=== PATIENT | male | born 1970 | race Caucasian/White ===

== ENCOUNTER 2017-11-02 07:50 | Inpatient (IN) | payer BC, OTHER ==
[~2017-11-02] VITALS: Ht 180.3 cm; Wt 80.7 kg
--- NOTE | 2017-11-02 10:50 | NUR ---
Pre-admission Note: Client is seen in intake at this time. Alert and verbally responsive. Oriented x 4. Appears anxious, restless, frequently shifting body movements, noted with BUE gross tremors and appears flushed. Hyperverbal speech noted with racing thoughts. He denies any AV hallucinations and S/I or H/I. He denies having and seizure history and reports allergies to PCN, and Cephalexin. VS: Temp 98.3, Pulse 87, RR 19, PL 0/10, O2 sat at RA 100%. He states "I'm here to get my life back together, I just can't keep on doing this anymore or I'm going to end up ." He reports using methamphetamine, Xanax, ETOH, Marijuana and hx of using hallucinogens such as ketamine and MDMA. Education provided regarding the admission process. He verbalized good understanding. He is able to give consent on the admission process. Will continue with the admission when patient arrives in the unit.
[2017-11-02 11:00] VITALS: BP 121/71
[2017-11-02] MEDS ORDERED: CLONIDINE HCL 0.1 MG TABLET PO PRN (11:00)
[2017-11-02] MEDS ORDERED: LORAZEPAM 1 MG TABLET PO PRN (11:00)
[2017-11-02] MEDS ORDERED: DICYCLOMINE HCL 20 MG TABLET PO PRN (11:00)
[2017-11-02] MEDS ORDERED: NICOTINE 14 MG/24HR PATCH TD PRN (11:00)
[2017-11-02] MEDS ORDERED: ONDANSETRON 4 MG/2 ML VIAL IM PRN (11:00)
[2017-11-02] MEDS ORDERED: ACETAMINOPHEN 325 MG TABLET PO PRN (11:00)
[2017-11-02] MEDS ORDERED: THIAMINE HCL 200 MG/2 ML VIAL IM ONE (11:00)
[2017-11-02] MEDS ORDERED: MAG HYDROX/AL HYDROX/SIMETH 30 ML LIQUID UDC PO PRN (11:00)
[2017-11-02] MEDS ORDERED: NICOTINE POLACRILEX 4 MG GUM-PK OF TEN BC PRN (11:00)
[2017-11-02] MEDS ORDERED: MAGNESIUM HYDROXIDE 30 ML LIQUID UDC PO PRN (11:00)
[2017-11-02] MEDS ORDERED: LORAZEPAM 2 MG/1 ML VIAL IM PRN (11:00)
[2017-11-02] MEDS ORDERED: LOPERAMIDE HCL 2 MG CAPSULE PO PRN ×2 (11:00)
[2017-11-02] MEDS ORDERED: IBUPROFEN 400 MG TABLET PO PRN (11:00)
[2017-11-02] MEDS ORDERED: ONDANSETRON ODT 4 MG TAB.RAPDIS SL PRN (11:00)
--- NOTE | 2017-11-02 11:15 | NUR ---
Admission Note: Admitted at 47 year old male under the care of Dr. Jc Madrigal for medically supervised withdrawal from multiple substances. He is alert and oriented x 4 with racing/disorganized thoughts, paranoia, hyperverbal speech. No changes in LOC noted since seeing the patient in intake. He appears anxious and worried, disheveled and restless. Noted with BUE gross tremors. Respirations even and unlabored. No SOB noted. Skin warm and moist to touch. Noted to appear with facial flushing. Body search done with male RESIDENTIAL PLUMBER. No contraband was found. Skin check done. No skin breakdown noted. Abdomen soft and non-distended. No complains of abdominal discomfort noted. He reports his LBM was yesterday. Bladder non-distended, but complains of difficulty voiding and strong urinary odor. He is ambulatory ad nithin with steady gait. Reports past medical hx of Schizoaffective disorder, Mood Disorder, Panic Disorder, Suicide Attempt by hanging 8 weeks prior to admission and withdrawal induced delirium, and Insomnia. He repots allergies to PCN and Cephalexin. No seizure history noted. Patient appears moderately intoxicated. CIWA 14, due to moderate to severe anxiety, agitation, mild tremors to BUE, and facial flushing. He refused to receive PNA and FLU vaccine at this time. His longest period of sobriety was 2.5 years in 2013. He has been to multiple treatments in the past. He currently denies having a PCP at this time, however reports having a psychiatrist which he has not seen in 3 years. He wishes to be FULL CODE. Substance Use: 1. Methamphetamine - Uses 0.5 grams to 1 gram daily via smoke inhalation, rectally or intranasally x 9 months. Last use was 5 hours prior to admission, 0.25 grams. 2. Xanax - Uses 1-2 grams orally on a non-daily, intermittent basis. Last use was on 11/01/2017, 1 mg. 3. ETOH (gin, red wine or beer) - Drinks "3-4" drinks 4x/week. Last use was on 11/01/2017. 4. Marijuana - Smokes an unspecified amount on a intermittent, non-daily basis. Last use was yesterday. Treatment History: 1. 30 day Outpatient treatment in 2002 in [place] 2. 5-day Medical detox in 2009 in [place] made aware of patient's arrival in the unit and current condition. MD entered in admission orders. Patient will be on PRN Ativan for withdrawal management. Orders noted and carried out. Addendum: 11/02/17 at 1309 by JOYCE SOLORIO LVN Upon admission and patient's arrival in the unit, patient denies having any active suicidal attempts, plans of H/I at this time.
[2017-11-02 11:36] LABS: BASOPHILS # (AUTO) 0.1 K/uL (0.0-8.0); BASOPHILS % (AUTO) 0.8 % (0.0-2.0); EOSINOPHILS # (AUTO) 0.2 K/uL (0.0-0.7); EOSINOPHILS % (AUTO) 3.1 % (0.0-7.0); HEMATOCRIT 51.7 % (36.7-47.1); HEMOGLOBIN 18.1 g/dL (12.5-16.3); LYMPHOCYTES # (AUTO) 2.2 K/uL (20.0-40.0); LYMPHOCYTES % (AUTO) 29.5 % (20.5-51.5); MEAN CORPUSCULAR HEMOGLOBIN 33.6 uug (23.8-33.4); MEAN CORPUSCULAR HGB CONC 35 g/dL (32.5-36.3); MONOCYTES # (AUTO) 0.5 K/uL (2.0-10.0); MONOCYTES % (AUTO) 7.2 % (0.0-11.0); NEUTROPHILS # (AUTO) 4.4 K/uL (1.8-8.9); NEUTROPHILS % (AUTO) 59.4 % (38.5-71.5); PLATELET COUNT (AUTO) 250 K/uL (152-348); RED BLOOD CELL COUNT(AUTO) 5.39 MIL/uL (4.06-5.63); WHITE BLOOD COUNT (AUTO) 7.3 K/uL (3.6-10.2)
[2017-11-02 11:37] LABS: ETHANOL < 3 MG/DL (0-0)
[2017-11-02 11:37] LABS: *AMPHETAMINE, URINE POSITIVE (NEGATIVE); *BARBITURATE, URINE NEGATIVE (NEGATIVE); *CANNABINOID, URINE POSITIVE (NEGATIVE); *COCCAINE, URINE NEGATIVE (NEGATIVE); *OPIATE, URINE NEGATIVE (NEGATIVE); *PHENCYCLIDINE SCREEN,URINE NEGATIVE (NEGATIVE)
[2017-11-02 11:41] LABS: ALANINE AMINOTRANSFERASE 25 U/L (16-63); ALKALINE PHOSPHATASE 102 U/L (50-136); ASPARTATE AMINOTRANSFERASE 17 U/L (15-37); BILIRUBIN,TOTAL 0.4 mg/dL (0.2-1.0); CARBON DIOXIDE 31 mmol/L (21-32); CHLORIDE 103 mmol/L (98-107); CREATININE 0.9 mg/dL (0.6-1.3); GLUCOSE 80 mg/dL (74-106); MAGNESIUM 2.1 mg/dL (1.8-2.4); POTASSIUM 3.9 mmol/L (3.5-5.1); TOTAL PROTEIN, SERUM 7.3 g/dL (6.4-8.2); UREA NITROGEN, BLOOD 8 mg/dL (7-18)
[2017-11-02] MEDS: THIAMINE HCL 100 MG TABLET PO SCH (11:50)
[2017-11-02] MEDS: LORAZEPAM 1 MG TABLET PO PRN (11:51)
--- NOTE | 2017-11-02 11:51 | NUR ---
Ativan 2 mg PO given: CIWA 14, due to moderate to severe anxiety, agitation. Mild gross tremors to BUE. Medicated patient with Ativan 2 mg PO as ordered. Will monitor for effectiveness.
[2017-11-02 12:00] VITALS: BP 127/77
[2017-11-02 12:13] LABS: THYROID STIMULATING HORMONE 1.058 mIU/mL (0.358-3.740)
--- NOTE | 2017-11-02 12:51 | NUR ---
Re-assessment: Ativan 2mg CIWA 4, patient appears to be more at ease, less tremors, sweating and less agitation noted. PRN Ativan 2 mg PO was effective.
[2017-11-02 12:56] LABS: *BILIRUBIN,URIN NEGATIVE (NEGATIVE); *BLOOD, URINE Trace-lysed (NEGATIVE); *CLARITY,URINE CLEAR (CLEAR); *COLOR,URINE YELLOW (YELLOW); *KETONES,URINE NEGATIVE (NEGATIVE); *PROTEIN,URINE NEGATIVE (NEGATIVE); *UROBILINOGEN,URINE 0.2 E.U./dl (NORMAL); LEUKOCYTE ESTERASE ,URINE NEGATIVE (NEGATIVE); NITRITE, URINE NEGATIVE (NEGATIVE); PH,URINE 5.5 (5.0-8.0); UGLUCOSE NEGATIVE (NEGATIVE)
[2017-11-02] MEDS ORDERED: OLAN10TA3 PO (13:24)
[2017-11-02 13:37] LABS: BACTERIA,URINE NONE SEEN /HPF (NONE SEEN); RBC,URINE 0-3 /HPF (0-3); SQUAMOUS EPITHELIAL CELL,UR FEW /HPF (NONE SEEN); WBC,URINE 0-3 /HPF (0-3)
--- NOTE | 2017-11-02 14:30 | NUR ---
Psych MD Visit: Patient seen and examined by Dr. Luke with N.O. Patient will be started on Abilify 2 mg PO as ordered. Patient education provided.
[2017-11-02] MEDS: ARIPIPRAZOLE 2 MG TABLET PO SCH (14:56)
[2017-11-02 16:00] VITALS: BP 102/67
[2017-11-02] MEDS: MIRALAX 17 GM POWD.PACK PO PRN (17:58)
--- NOTE | 2017-11-02 17:58 | NUR ---
Miralax 17 G po given: Patient complained of constipation. Oral fluids encouraged. Activity encouraged. Medicated patient with Miralax 17 GM po as ordered. Will monitor for effectiveness.
--- NOTE | 2017-11-02 18:58 | NUR ---
Re-assessment: Miralax No results noted from Miralax noted at this time. Oral fluids encouraged. Will continue to monitor.
--- NOTE | 2017-11-02 19:00 | NUR ---
Start of Shift Patient Received. Patient is in his room sleeping but easily aroused to verbal stimuli. Breathing even and non labored. Per endorsement, Patient is a 47 year old male admitted today for Methamphetamine and Benzo Withdrawal. Patient is currently receiving PRN medications for increased signs and symptoms of withdrawal. Patient is noted with increased anxiety, agitation, restlessness, gross tremors, and facial flushing. Patient was given PRN Ativan 2mg with medication noted to be effective. Patient also was given PRN Miralax with complaints of constipation. Patient was noted to be withdrawn to room due to increased signs and symptoms of withdrawal. Last noted CIWA 4. All needs attended to promptly. Will continue plan of care as ordered.
--- NOTE | 2017-11-02 19:03 | NUR ---
End of Shift Notes: Patient is on PRNs at this time to manage his withdrawal symptoms. VS monitored closely. No significant abnormalities noted. Withdrawal symptoms were closely monitored. Initial CIWA 14, patient presented with anxiety, agitation, restlessness, gross tremors, facial flushing. Medicated patient with Ativan 2 mg PO at 1151 for CIWA 14 with help after 1 hour. Miralax 17gm PO given at 1758 for complains of constipation. Results pending. Patient verbalizes that Ativan has been effective in reducing his withdrawal symptoms. Patient continues to be appear worried, sad and anxious. Redirected as needed. Requires encouragement to participated in group and activities for redirection. Mostly stayed in his room for the remainder of the shift. All needs met and attended. Will continue to monitor closely.
[2017-11-02 20:45] VITALS: BP 121/80
[2017-11-02] MEDS ORDERED: LORAZEPAM 1 MG TABLET PO SCH (21:00)
[2017-11-02] MEDS: diphenhydrAMINE 50 MG CAPSULE PO PRN (21:13)
--- NOTE | 2017-11-02 21:15 | NUR ---
PRN Medication Administration Patient is verbalizing inability of falling asleep. Patient states "I'm really restless and find myself waking up intermittently." PRN Benadryl administered as per order. Will continue to monitor.
--- NOTE | 2017-11-02 22:15 | NUR ---
PRN Medication Reassessment Patient is noted in bed sleeping. Breathing even and non labored. No restlessness or discomfort noted. Patient was given PRN Benadryl for inability of falling asleep with medication noted to be effective.
[2017-11-03 00:17] VITALS: BP 129/73
[2017-11-03 04:10] VITALS: BP 120/89
--- NOTE | 2017-11-03 04:15 | NUR ---
PRN Medication Administration Patient is noted awake during vitals and verbalizing increased heart burn. PRN Mylanta administered. Will continue to monitor
--- NOTE | 2017-11-03 05:15 | NUR ---
PRN Medication Reassessment Patient is noted in bed sleeping. Breathing even and non labored. No signs of discomfort noted. PRN mylanta noted to be effective. Will continue to monitor.
[2017-11-03] MEDS: LORAZEPAM 1 MG TABLET PO PRN ×2 (05:44→22:52)
--- NOTE | 2017-11-03 05:46 | NUR ---
PRN Medication Administration Patient is noted in bed, awake, and verbalizing increased auditory and visual hallucinations. Patient states "I cannot distinguish if im awake or asleep. But there was someone standing at the foot of my bed talking to me. I could not get my words out to tell them anything. All I could do was hit the call light." he is also able to verbalize increased anxiety, restlessness, and increased sweats. CIWA noted to be 23. PRN Ativan 2mg administered. Will continue to monitor.
--- NOTE | 2017-11-03 06:34 | NUR ---
PRN Medication Reassessment Patient was reassessed and patient was able to verbalize "the Ativan helped my anxiety. I haven't fully fallen back to sleep yet to have another episode." CIWA noted to be 9.
--- NOTE | 2017-11-03 07:02 | NUR ---
End of shift Patient is in bed sleeping. Breathing even and non labored. Patient continues on PRN Medications for increased signs and symptoms of withdrawal. Patient was given PRN Benadryl for inability of falling and staying asleep. Patient slept for approx 8 hours. PRN Mylanta administered for increased heart burn with medication noted to be effective. Patient was also noted with episode of auditory and visual hallucinations. CIWA noted to be 23. PRN Ativan administered with medication noted to be effective. Patient was reassessed and patient was able to verbalize "the Ativan helped my anxiety. I haven't fully fallen back to sleep yet to have another episode." CIWA noted to be 9. All needs attended to promptly. Will endorse to continue plan of care as ordered.
--- NOTE | 2017-11-03 07:20 | NUR ---
START OF SHIFT : PATIENT IS 47 YR OLD MALE ADMITTED TO [facility] ON 11/02/17 FOR WITHDRAWAL FROM METHAMPHETAMINE. PATIENT IS ONLY ON PRN MEDICATION AT THIS TIME. PRN MEDS REQUIRED ON PM SHIFT : ATIVAN, BENADRYL, MYLANTA, MOM AND MIRALAX. LAST CIWA 9 @ 0600. PATIENT SLEPT FOR 8 HOURS. PATIENT IS ASLEEP IN BED AT THIS TIME, BREATHING EVEN AND UNLABORED, SIDE RAILS UP X 2. WILL CONTINUE TO FOLLOW MD PLAN OF CARE.
[2017-11-03 08:00] VITALS: BP 133/91
[2017-11-03 08:06] LABS: HEPATITIS B SURFACE AG Negative (Negative)
[2017-11-03] MEDS: ARIPIPRAZOLE 2 MG TABLET PO SCH (08:58)
[2017-11-03] MEDS: MULTIVITAMINS,THERAPEUTIC TABLET PO SCH (08:58)
[2017-11-03] MEDS: FOLIC ACID 1 MG TABLET PO SCH (08:58)
[2017-11-03] MEDS: THIAMINE HCL 100 MG TABLET PO SCH (08:58)
[2017-11-03] MEDS ORDERED: TUBERCULIN,PURIF.PROT.DERIV. 5 TU/0.1 ML TEST ID ONE (09:00)
[2017-11-03] MEDS ORDERED: THIAMINE HCL 100 MG TABLET PO SCH (09:00)
--- NOTE | 2017-11-03 09:00 | NUR ---
PPD PLACED LEFT FOREARM ( ON WHITE SKIN IN MIDDLE OF TATTOO )
--- NOTE | 2017-11-03 09:06 | NUR ---
PRN ATIVAN 1MG PO ATIVAN GIVEN FOR CIWA 12 AND PATIENT COMPLAINS OF HAVING MILD VISUAL AND AUDITORY HALLUCINATIONS, WILL CONTINUE TO MONITOR
--- NOTE | 2017-11-03 10:06 | NUR ---
ATIVAN REASSESS PATIENT STATES THAT HE FEELS MORE RELAXED AND HAS NO HALLUCINATIONS AT THIS TIME, CIWA WAS 12 NOW 8 CONTINUE TO MONITOR
[2017-11-03 12:00] VITALS: BP 118/82
[2017-11-03] MEDS: LORAZEPAM 1 MG TABLET PO SCH ×3 (12:13→20:27)
[2017-11-03 16:00] VITALS: BP 122/89
--- NOTE | 2017-11-03 19:03 | NUR ---
END OF SHIFT : PATIENT IS A 47 YEAR OLD MALE ADMITTED TO [facility] ON 11/02/17 FOR WITHDRAWAL FROM METHAMPHETAMINES, XANAX, ALCOHOL, MARIJUANA AND MDMA. PATIENT IS ON A 3 DAY ATIVAN TAPER AND TODAY IS DAY 1. PATIENT REPORTS VISUAL AND AUDITORY HALLUCINATIONS WHICH ARE NON THREATENING IN NATURE. PSYCHIATRIST STARTED PATIENT ON 5MG ABILIFY PO DAILY. PATIENT ATTENDED GROUP AND YOGA TODAY. FLUID INTAKE THIS SHIFT 2200ML, 5 VOIDS AND 1 BM. LAST CIWA 10 @ 1600. SAFETY MEASURES IN PLACE, BED LOW AND LOCKED, ALL NEEDS MET, CONTINUE TO FOLLOW MD PLAN OF CARE.
--- NOTE | 2017-11-03 19:30 | NUR ---
Start of Shift Notes Received 47 y/o male px, admitted on 11/02/2017 for medically supervised withdrawals from ETOH and Benzo. Px was placed on 3 day Ativan taper started on 11/03/2017. Last reported CIWA 10 by AM shift nurse. During the rounds at 1930, px is awake, sitting on the chair, appears anxious, unshaven and disheveled. Room is odorous, and few unfinished drinks noted on bed side table. Px stated "my anxiety tonight is 7/10 and I have toothache 3/10". Px added "Can I have Tylenol for my toothache?" Bed on lowest position, side rails up 2x, and call light within reach. We'll continue to monitor.
[2017-11-03 20:00] VITALS: BP 123/77
[2017-11-03] MEDS: diphenhydrAMINE 50 MG CAPSULE PO PRN (21:26)
--- NOTE | 2017-11-03 22:52 | NUR ---
PRN meds At 2026, px was given Tylenol 325 mg/tab, 2 tabs given PO for toothache 10/23. At 2125, px was given Benadryl 50 mg/cap, 1 cap given PO for insomnia. At 2251, Px was given Ativan 1 mg/tab, 2 tabs given PO for CIWA 14. We'll continue to monitor.
--- NOTE | 2017-11-04 | NUR ---
VS refused Px refused to have his VS taken at this moment. Respiration are not labored running at 16 cpm. We'll continue to monitor.
[2017-11-04 04:00] VITALS: BP 120/76
--- NOTE | 2017-11-04 04:00 | NUR ---
CIWA deferred CIWA deferred at 0000 and 0400 due to the px is asleep, to assess if the px is awake per doctor's order. We'll continue to monitor.
--- NOTE | 2017-11-04 07:06 | NUR ---
End of Shift Notes During the shift at 2026, px received Tylenol 650 mg PO for toothache, pain remains at 3/10. At 2125, Benadryl 50 mg PO given to px for insomnia. At 2251, px was given Ativan 2 mg PO for CIWA 14 as PRN med. Px's oral intake is 1,500 ml, voided 4x, No BM. Px slept for 7 hours. At 0630, px is asleep on bed in right side lying position. Last CIWA 14. Bed on lowest position, side rails up 2x, and call light within reach. We'll continue to monitor. Px endorsed to AM shift nurse.
--- NOTE | 2017-11-04 07:15 | NUR ---
START OF SHIFT Pt is a 47 yr old male, admitted on 11/02/17 for ETOH/Benzo withdrawal and is on a 3 day Ativan taper as ordered. Medication alejandra well. Received report from shift mechanic nurse. Pt received Tylenol PRN for pain mgt, Benadryl PRN for sleep and Ativan 2mg PO PRN for s/s of w/d. Medication was effective. Last CIWA score was 14 at 2300. Pt slept for 7 hrs. Pt is currently in bed sleeping with respirations even and unlabored. Skin is intact, warm and moist to to touch. Pt is on fall and seizure precautions. Call light is within reach. Will continue to monitor.
[2017-11-04 08:06] LABS: *GC NAA Negative (Negative); *TRIC.VAG. NAA Negative (Negative)
[2017-11-04 08:08] VITALS: BP 100/69
[2017-11-04] MEDS: MULTIVITAMINS,THERAPEUTIC TABLET PO SCH (08:49)
[2017-11-04] MEDS: LORAZEPAM 1 MG TABLET PO SCH ×3 (08:49→20:37)
[2017-11-04] MEDS: FOLIC ACID 1 MG TABLET PO SCH (08:49)
[2017-11-04] MEDS: THIAMINE HCL 100 MG TABLET PO SCH (08:49)
[2017-11-04] MEDS ORDERED: ARIPIPRAZOLE 5 MG TABLET PO SCH (09:00)
[2017-11-04] MEDS ORDERED: LORAZEPAM 1 MG TABLET PO ONE ×2 (10:00→18:00)
--- NOTE | 2017-11-04 10:02 | NUR ---
COMMUNICATION Reported to Dr. Madrigal of CIWA score 18. Pt was seen and examined by Dr. Madrigal with new order for Ativan 2mg PO x1. New order was initiated and carried.
[2017-11-04] MEDS ORDERED: HYDROXYZINE PAMOATE 25 MG CAPSULE PO PRN (11:00)
--- NOTE | 2017-11-04 11:00 | NUR ---
ATIVAN RE-ASSESSMENT Ativan 2mg PO x1 was effective. Pt states, "I feel better". Pt states of having mild auditory hallucinations but denies any visual hallucinations. CIWA score is 10. Will continue to monitor.
[2017-11-04 12:37] VITALS: BP 124/74
[2017-11-04] MEDS ORDERED: GABA-534 PO (14:05)
[2017-11-04] MEDS ORDERED: DIPH50CA37 PO (14:05)
[2017-11-04] MEDS ORDERED: HYDR-3895 PO (14:05)
[2017-11-04] MEDS ORDERED: BUPR-96 PO (14:05)
[2017-11-04] MEDS ORDERED: ARIP5TAB10 PO (14:05)
--- NOTE | 2017-11-04 14:06 | NUR ---
Client's contacted Charge Nurse in the evening time 11/03, regarding a payment needing to be made. CM met with client about this matter to help facilitate this payment to be made. Client declined needing to make this payment, stating that it has already been taken care of.
[2017-11-04] MEDS: buPROPion XL 150 MG TAB.SR.24H PO SCH (14:14)
[2017-11-04] MEDS: GABAPENTIN 300 MG CAPSULE PO SCH ×2 (14:14→20:37)
[2017-11-04 16:00] VITALS: BP 140/89
[2017-11-04] MEDS: ARIPIPRAZOLE 5 MG TABLET PO SCH (17:40)
[2017-11-04] MEDS: MIRALAX 17 GM POWD.PACK PO PRN (17:43)
--- NOTE | 2017-11-04 17:43 | NUR ---
PRN GIVEN Pt states of feeling constipated. Miralax 17gm PO PRN was given with prune juice. Medication was alejandra well. Pt was encouraged increase fluid intake for hydration. Will continue to monitor.
--- NOTE | 2017-11-04 17:45 | NUR ---
MD COMMUNICATION Pt is noted with increase agitation and speaking out loud towards the staff. pt is observed pacing back and forth. Facial flush is observed. CIWA score was 18. Report to Dr. Madrigal, received telephone order for Ativan 2mg PO x1 for s/s of w/d. New order was read back, noted and carried out.
--- NOTE | 2017-11-04 18:00 | NUR ---
MD COMMUNICATION Pt is noted with increase agitation and speaking out loud towards the staff. pt is observed pacing back and forth. Facial flush is observed. Pt is also noted with confusion. Report to with new telephone order for Depakote 250mg PO TID and Seroquel 50mg PO Q4H PRN for agitation. New order was noted and carried out.
[2017-11-04] MEDS ORDERED: QUETIAPINE FUMARATE 25 MG TABLET PO PRN (18:15)
--- NOTE | 2017-11-04 18:19 | NUR ---
MEDICATION ADMINISTERED Ativan 2mg PO x1 was given as ordered for CIWA score of 18. Pt continues to be observed wtih anxiety and is emotional volatile. Face is observed flushed. Fine tremors are seen on BUE. Pt was encoruaged increase fluid intake. Will continue to monitor.
--- NOTE | 2017-11-04 18:50 | NUR ---
START OF SHIFT NOTE: Patient is a 47 year old male admitted for Benzodiazepines/Xanax, ETOH/Gin, Beer, Red Wine, Methamphetamine (intranasal, [place], smoked), and MOMA/Ketamine withdrawal. Patient continues 3 day Ativan taper, which tolerated well. Patient remains compliant with treatment, medications, and diet regime per day shift nurse report. Patient reported allergy to PCN, Cephalexin. He is on Full code, Regular diet, is on Fall and Seizures Precautions. Patient denies Seizures History. Patient is alert and oriented x4, resting on the bed. Patient denies hallucinations and SI/HI. Hoarding food and spilled drinks noted around the room. Patient appears sad with poor eye contact. Patient noted unwashed , disheveled with uncombed hair. More recent CIWA =18 @1800 per day shift nurse report: patient presented disoriented with date, auditory hallucinations, "hears humming", with anxiety, agitation, nervousness, mild harsh/frighten, tremors, restlessness, sweating, c/o abdominal pain, nasal congestion, and fatigue. VSWNL. PRN Miralax 17 gm /1 powd.pack administrated for constipation @1743 per day shift nurse report was ineffective. Patient encouraged to express his feelings. Encouraged to fluids intake as tolerated. Encouraged to attend group activities. All needs met. Safety measures in place: Call light within reach, bed is locked in lowest position, padded bed rails up bilaterally. Patient endorsed by outgoing day shift nurse. Will continue to monitor closely.
--- NOTE | 2017-11-04 18:50 | NUR ---
END OF SHIFT Pt is a 47 yr old male, AA&Ox3. Pt was admitted on 11/02/17 for ETOH/Benzo withdrawal and is on 3 day Ativan taper as ordered. Pt has been noted with periods of confusion and episode of emotional volatile. Pt has also been observed with increase anxiety and agitation. Pt c/o auditory hallucinations, stating he hears humming. No SI/HI noted. Skin is intact, warm and moist to touch. Pt received Ativan 2mg PO (one time order) at 1004 and at 1818. Medication was effective. Pt also received Miralax PO PRN for constipation. Pt was encouraged increase fluid intake for hydration. No BM was reported. Report to Dr. Luke in regards to his behavior with new order for Seroquel 50mg PO Q4H PRN for agitation and Depakote 250mg PO TID. New order was noted and carried out. last CIWA score was 18 at 1800. Safety precautions observed. Call light is within reach. Endorsed to cook night nurse to continue with care.
[2017-11-04 20:00] VITALS: BP 132/85
[2017-11-04] MEDS: diphenhydrAMINE 50 MG CAPSULE PO PRN (20:43)
--- NOTE | 2017-11-04 20:43 | NUR ---
PRN BENADRYL 50 MG 1 CAPSULE PO ADMINISTRATION PATIENT C/O INSOMNIA AND ASKED AID. PRN BENADRYL 50 MG 1 CAPSULE PO FOR INSOMNIA ADMINISTRATED ORDERED. PATIENT TOLERATED WELL. ALL SAFETY MEASURES IN PLACE: CALL LIGHT WITHIN REACH, BED LOCKED IN LOWEST POSITION, PADDED BED RAILS UP X2. WILL CONTINUE TO MONITOR CLOSELY.
--- NOTE | 2017-11-04 21:43 | NUR ---
RE-ASSESSMENT PATIENT IS SLEEPING. RR:16. RESPIRATIONS ARE EVEN AND UNLABORED. PRN BENADRYL 50 MG 1 CAPSULE PO ADMINISTRATED FOR INSOMNIA 2050 WAS EFFECTIVE. ALL NEEDS MET. SAFETY MEASURES IN PLACE: CALL LIGHT WITHIN REACH, BED IS LOCKED IN LOWEST POSITION, BED RAILS UP X2. WILL CONTINUE TO MONITOR CLOSELY.
[2017-11-05] VITALS: BP 105/64
[2017-11-05 04:00] VITALS: BP 116/67
--- NOTE | 2017-11-05 06:55 | NUR ---
END OF SHIFT NOTE: 47 year old male continues 3 Day Ativan Taper for Benzodiazepines/Xanax, ETOH/Gin, Beer, Red Wine, Methamphetamine (intranasal, [place], smoked),and MDMA/Ketamine withdrawal. He is tolerated well. Patient 's c/o feelings of low self-esteem, increased anxiety, depression, and irritability. Patient denied SI/HI. Emotional support provided, and patient 's reassuring. The patient noted disheveled,unshaven, unkempt, sad with avoidant eye contact. His clothes are dirty and patient refused to change them. He was educated in safety and hygiene care. Encouraged to independently perform hygiene care. The patient was educated in safety and hygiene care. The patient was encouraged to independently perform hygiene care. Withdrawal symptoms was closely monitored. CIWA=10 @2000, CIWA=8 @0000. Last CIWA=6 @0400. Patient presented with anxiety, agitation, depression, irritability, nervousness, sweating, restlessness,and fatigue. No PRN Medications was given. Safe and calm environment with minimized noises was provided. Patient slept 10 hours, intake 1,500 ml, voided x3. Patient denies SI/HI at this time. All needs met. Safety measures in the place by hospital policy: Call light within reach, bed in the lowest position and locked, padded rails up x2. Patient endorsed to day shift nurse. Addendum: 11/06/17 at 0340 by HAILEY STEARNS RN PRN Benadryl 50 mg 1 capsule administrated for insomnia @2042 was effective.
--- NOTE | 2017-11-05 07:30 | NUR ---
START OF SHIFT Pt is a 47 yr old male, admitted on 11/02/17 for ETOH/Benzo withdrawal and is on a 3 day Ativan taper as ordered. Medication alejandra well. Received report from shift mechanic nurse. No PRN's were given during the night. Pt slept for 10hrs. Last CIWA score was 6 at 0400. Pt remains in bed sleeping with respirations even and unlabored. Skin is intact, warm and moist to to touch. Pt is on fall and seizure precautions. Bed kept in low position and locked with side rails up x2. Call light is within reach. Will continue to monitor.
[2017-11-05 08:04] VITALS: BP 112/75
[2017-11-05] MEDS: GABAPENTIN 300 MG CAPSULE PO SCH ×3 (08:54→21:01)
[2017-11-05] MEDS: THIAMINE HCL 100 MG TABLET PO SCH (08:54)
[2017-11-05] MEDS: FOLIC ACID 1 MG TABLET PO SCH (08:54)
[2017-11-05] MEDS: ARIPIPRAZOLE 5 MG TABLET PO SCH ×2 (08:55→17:15)
[2017-11-05] MEDS: buPROPion XL 150 MG TAB.SR.24H PO SCH (08:55)
[2017-11-05] MEDS: MULTIVITAMINS,THERAPEUTIC TABLET PO SCH (08:55)
[2017-11-05] MEDS: DIVALPROEX 250 MG TABLET.DR PO SCH ×3 (08:55→17:15)
[2017-11-05] MEDS ORDERED: LORAZEPAM 1 MG TABLET PO SCH (09:00)
[2017-11-05 12:00] VITALS: BP 112/73
--- NOTE | 2017-11-05 12:31 | NUR ---
Therapist prompted client to attend all groups while in treatment to increase feelings of being connected to others and not be isolated in bedroom. Therapist explained the benefits of attending groups such as learning new coping tools, learning about feelings/emotions and being able to learn to decrease negative feelings and thoughts
--- NOTE | 2017-11-05 13:13 | NUR ---
MEDICATION HELD Depakote 250mg PO as scheduled at 1300 was held due to pt is too sedative. safety precautions observed. Call light is within reach. Will continue to monitor.
[2017-11-05 16:00] VITALS: BP 125/87
--- NOTE | 2017-11-05 18:54 | NUR ---
START OF SHIFT NOTE: 47 year old male presented for Benzodiazepines/Xanax, ETOH/Gin, Beer, Red Wine, Methamphetamine , and MDMA/Ketamine withdrawal, completed ordered 3 day Ativan taper, which tolerated well. Patient is alert and oriented x4, denies hallucinations and SI/HI. Patient appears sad, worry with poor eye contact. Encouraged to express his feelings. Patient noted unshaven, disheveled, unkempt with uncombed hair. CIWA =10 @1600 per day shift nurse report: patient presented with anxiety, agitation, nervousness, restlessness, fatigue, sweating, and nasal congestion. Patient remains compliant with treatment, medications, and diet regime per day shift nurse report. No PRN Medications was given during the day shift. Encouraged to fluids intake as tolerated. Encouraged to attend group activities. Patient scheduled for discharging tomorrow, on 11/06/2017 @0930. All needs met. Safety measures in place: Call light within reach, bed is locked in lowest position, padded bed rails up bilaterally. Patient endorsed by outgoing day shift nurse. Will continue to monitor closely.
--- NOTE | 2017-11-05 18:54 | NUR ---
END OF SHIFT Pt is a 47 yr old male, AA&Ox3 with periods of forgetfulness. Pt was admitted on 11/02/17 for ETOH/Benzo withdrawal and has completed 3 day Ativan taper as ordered. Pt has been cooperative with medication regimen and plan of care. Pt has been observed with anxiety and agitation m/b difficulty staying still. Skin is intact, warm and moist to touch. No tremors seen or felt. Depakote 250mg PO as scheduled at 1300 was held due to increase sedation. No PRN's were given during the day. Pt is to be discharged tomorrow to [facility]. No SI/HI noted. Last CIWA score was 10 at 1600. Call light is within reach. Endorsed to crepe sole scourer nurse to continue with care.
[2017-11-05 20:00] VITALS: BP 113/73
[2017-11-05] MEDS: diphenhydrAMINE 50 MG CAPSULE PO PRN (21:01)
--- NOTE | 2017-11-05 21:01 | NUR ---
PRN BENADRYL 50 MG 1 CAPSULE PO ADMINISTRATION PATIENT C/O INSOMNIA. PRN BENADRYL 50 MG 1 CAPSULE PO FOR INSOMNIA ADMINISTRATED ORDERED. PATIENT TOLERATED WELL. ALL SAFETY MEASURES IN PLACE: CALL LIGHT WITHIN REACH, BED LOCKED IN LOWEST POSITION, PADDED BED RAILS UP X2. WILL CONTINUE TO MONITOR CLOSELY.
--- NOTE | 2017-11-05 23:01 | NUR ---
RE-ASSESSMENT Patient is sleeping. RR 16. Respirations are even and unlabored. PRN Benadryl 50 mg PO administrated for insomnia @2100 as ordered was effective. All needs met. Safety measures in place: Call light within reach, bed is locked in lowest position, padded bed rails up bilaterally. Will continue to monitor closely.
[2017-11-06] VITALS: BP 118/76
[2017-11-06 04:00] VITALS: BP 113/73
--- NOTE | 2017-11-06 06:58 | NUR ---
END OF SHIFT NOTE Patient completed 3 Day Ativan Taper for withdrawal from Benzodiazepines/Xanax, ETOH/Gin, Beer, Red Wine, Methamphetamine and MDMA/Ketamine. Patient tolerated well. Patient remains compliant with treatment, medications, and diet regime. Withdrawal symptoms was closely monitored. Patient is alert and oriented x4. He is appears easily overwhelmed, sad, worry with poor eye contact. Patient encouraged to express her feelings. Education provided to use of Relaxation Techniques: Deep breathing exercises, guided imagery, and visualization. Patient noted disheveled, unkempt with uncombed hair. Educated in safety and hygiene care. Encouraged to independently perform hygiene care. CIWA=10 @2000, CIWA=9 @0000. Latest CIWA=8 @0400. Last night patient presented with anxiety, agitation, body aches, nervousness, tremors, insomnia, and sweating. PRN Benadryl 50 mg 1 capsule administrated for insomnia @2100 was effective. Safe and calm environment with minimized noises was provided. Patient slept 7 hours, intake 1,483 ml, voided x2. Patient scheduled for discharging today. All needs met. Safety measures in the place: Call light within reach, bed in the lowest position locked, padded rails up x2. Patient endorsed to day shift nurse.
--- NOTE | 2017-11-06 07:40 | NUR ---
Start of shift- Pt is a 47 y/o male admitted for meth, Xanax, ETOH and MDMA withdrawal. Patient completed 3 Day Ativan Taper for withdrawal from Benzodiazepines/Xanax, ETOH/Gin, Beer, Red Wine, Methamphetamine and MDMA/Ketamine. Patient tolerated well. Patient appears to be sleeping on right side. Resp even and unlabored. Pt arousable to name and light touch. Last CIWA=8 @0400. Last night PRN Benadryl 50 mg 1 capsule administrated for insomnia @2101 was effective. Patient slept 7 hours. Patient scheduled for discharging today. Pt reports FULL CODE, ALLERGY TO PCN AND CEPHALEXIN. Safety measures in the place: Call light within reach, bed in the lowest position locked, padded rails up x2. Will continue to monitor for safety and s/s withdrawal symptoms.
[2017-11-06 08:00] VITALS: BP 116/71
[2017-11-06] MEDS: DIVALPROEX 250 MG TABLET.DR PO SCH (08:13)
[2017-11-06] MEDS: FOLIC ACID 1 MG TABLET PO SCH (08:13)
[2017-11-06] MEDS: buPROPion XL 150 MG TAB.SR.24H PO SCH (08:13)
[2017-11-06] MEDS: THIAMINE HCL 100 MG TABLET PO SCH (08:13)
[2017-11-06] MEDS: MULTIVITAMINS,THERAPEUTIC TABLET PO SCH (08:14)
[2017-11-06] MEDS: GABAPENTIN 300 MG CAPSULE PO SCH (08:14)
--- NOTE | 2017-11-06 08:20 | NUR ---
PRN Vistaril 25 mg PO for anxiety administered.
[2017-11-06] MEDS: ARIPIPRAZOLE 5 MG TABLET PO SCH (08:21)
--- NOTE | 2017-11-06 09:10 | NUR ---
Reasses Paytontaril, pt reports anxiety improved. He is nervous about discharge.
--- NOTE | 2017-11-06 09:33 | NUR ---
Discharge note- Pt is in stable condition, VS WNL, skin is intact, denies any suicidal or homicidal ideations. All discharge paper work signed and dated. Pt was discharged from [facility] 11/06/2017 at 0933. Pt left building will all his belongings and prescriptions. notified.
== END 2017-11-06 09:33 | disposition other institution (70) | DRG 895 ==
LOC: SRC 10:15
PROVIDERS: ADMIT Internal Medicine; ATTEND Internal Medicine
PROC: HZ2ZZZZ Detoxification Services for Substance Abuse Treatment (ICD-10-PCS; principal; 2017-11-02)
PROC: HZ31ZZZ Individual Counseling for Substance Abuse Treatment, Behavioral (ICD-10-PCS; 2017-11-05)
PROC: HZ41ZZZ Group Counseling for Substance Abuse Treatment, Behavioral (ICD-10-PCS; 2017-11-05)
DX: F15.221 Other stimulant dependence with intoxication delirium (principal); F10.239 Alcohol dependence with withdrawal, unspecified; F25.9 Schizoaffective disorder, unspecified; F29 Unspecified psychosis not due to a substance or known physiological condition; F13.239 Sedative, hypnotic or anxiolytic dependence with withdrawal, unspecified; F12.90 Cannabis use, unspecified, uncomplicated; Y90.9 Presence of alcohol in blood, level not specified; F41.0 Panic disorder [episodic paroxysmal anxiety]; Z81.1 Family history of alcohol abuse and dependence; Z83.3 Family history of diabetes mellitus; Z80.9 Family history of malignant neoplasm, unspecified; F17.210 Nicotine dependence, cigarettes, uncomplicated; Z91.5 Personal history of self-harm; Z91.89 Other specified personal risk factors, not elsewhere classified; F16.10 Hallucinogen abuse, uncomplicated; Z72.51 High risk heterosexual behavior; F39 Unspecified mood [affective] disorder
CPT/HCPCS: 36415; 70030-TC; 80307; 80324; 80349; 83735; 84443; 85025; 86580; 86592; 86705; 86803; 87340; 87491; 87806; A4663; G0480; J3490; Q0163